=== PATIENT | female | born 1955 | race Caucasian/White ===

== ENCOUNTER 2023-08-20 07:00 | Outpatient (CLI) | payer MEDICARE ==
--- NOTE | 2023-08-20 14:28 | XRAY Report ---
PROCEDURE: Tib/Fib LT INDICATIONS: CONTUSION OF LEFT KNEE TECHNIQUE: 2 views of the tibia and fibula were acquired. COMPARISON: None. FINDINGS: Bones: No fractures or dislocations. No suspicious bony lesions. Soft tissues: No suspicious soft tissue calcifications or masses. IMPRESSION: No visualized acute fracture or dislocation. However, occult injury cannot be excluded. Recommend corazon rt interval imaging follow-up in 7-10 days as clinically indicated for additional evaluation. Reviewed by: Tashia Wilson MD on 08/20/2023 2:26 PM PST Approved by: Tashia Wilson MD on 08/20/2023 2:26 PM PST Station ID: [id number]
== END 2023-08-20 23:59 | disposition home or self-care (01) ==
LOC: DI.S 07:00
PROVIDERS: ATTEND Physician Assistant
DX: S80.02XA Contusion of left knee, initial encounter (principal)

== ENCOUNTER 2023-10-27 18:44 | Emergency (ER) | payer MEDICARE ==
[2023-10-27] MEDS: BUFFERED LIDOCAINE 10 ML SYRINGE SUBQ STA (19:09)
--- NOTE | 2023-10-27 19:23 | ED Physician Documentation ---
PD HPI UPPER EXT INJURY - Stated complaint Stated Complaint: L FINGER LAC - Chief complaint Chief Complaint: Laceration - History obtained from History obtained from: Patient (Early this morning shortly after midnight she cut her left middle finger with a knife and has persistent bleeding. Tetanus is unknown.) PD PAST MEDICAL HISTORY - Past Medical History Past Medical History: Yes Respiratory: None Neuro: None Endocrine/Autoimmune: Type 2 diabetes GI: None ASSOCIATE PROFESSOR OF EDUCATION: None : None HEENT: None Psych: None Musculoskeletal: None - Past Surgical History Past Surgical History: Yes General: Cholecystectomy, Appendectomy Ortho: Other /ASSOCIATE PROFESSOR OF EDUCATION: section - Allergies Allergies/Adverse Reactions: Allergies Allergy/AdvReac Type Severity Reaction Status Date / Time bacitracin AdvReac Unknown Verified 10/27/23 18:53 [From Neosporin ([id number])] latex AdvReac Unknown Verified 10/27/23 18:54 neomycin AdvReac Unknown Verified 10/27/23 18:53 [From Neosporin ([id number])] polymyxin B AdvReac Unknown Verified 10/27/23 18:53 [From Neosporin ([id number])] - Social History Does the pt smoke?: No Smoking Status: Never smoker Does the pt drink ETOH?: No Does the pt have substance abuse?: No - Immunizations Immunizations are current?: Yes - POLST Patient has POLST: No PD ED PE NORMAL - Vitals Vital signs reviewed: Yes - General General: Alert and oriented X 3, No acute distress - Extremities Extremities: Other (5 mm shallow laceration over the DIP dorsally on the radial side of the left middle finger that is hemostatic.) - Neuro Neuro: Alert and oriented X 3, Normal speech Results - Vitals Vitals: Vital Signs - 24 hr 10/27/23 18:48 Temperature 36.8 C Heart Rate 81 Respiratory 16 Rate Blood Pressure 171/85 H O2 Saturation 100 Oxygen O2 Source Room air Procedures - Laceration (location) L middle finger Length in cm: 0.5 Wound type: Linear Wound preparation: Betadine Skin layer closure: Steri strips Other: Patient tolerated well, No complications, Neurovascular intact, Tetanus booster given PD Medical Decision Making - ED course ED course: It is really too old to suture and frankly did not need sutures anyway. It was cleansed with iodine and then closed with Steri-Strips. Counseled on conservative care. She is eager to participate in a violin concert this weekend and I told her to take it easy. Departure - Departure Disposition: 01 Home, Self Care Clinical Impression: Laceration of left middle finger Condition: Good Record reviewed to determine appropriate education?: Yes Instructions: ED Laceration Small Superf No Sutr Comments: Your blood pressure was elevated today on check into the emergency department. This does not mean that you have hypertension, it is a common phenomenon to come to the emergency department and have elevated blood pressure. I recommend that you see your primary care physician within the week to have it rechecked when you are feeling better.
[2023-10-27] MEDS: TETANUS/DIPHTHERIA/PERTUSSIS 0.5 ML SYRINGE IM ONE (19:35)
[2023-10-27 20:24] VITALS: BP 134/63; O2SAT 96
== END 2023-10-27 20:10 | disposition home or self-care (01) ==
LOC: ED 18:44
DX: S61.213A Laceration without foreign body of left middle finger without damage to nail, initial encounter (principal); W26.0XXA Contact with knife, initial encounter; R03.0 Elevated blood-pressure reading, without diagnosis of hypertension
CPT/HCPCS: 12001; 99283